=== PATIENT | female | born 2000 | race African-American/Black ===

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

== ENCOUNTER 2022-02-17 11:21 | Emergency (ER) | payer OTHER ==
[2022-02-17] MEDS ORDERED: LORazepam 2 MG/ML VIAL ONE (12:17)
[2022-02-17 12:27] LABS: Absolute Lymphocytes (CBC) 1.2 K/uL (0.7-4.9); Hematocrit 36.4 % (36.0-45.0); Lymphocytes % 38.6 % (15.3-44.8); MPV 8.5 fL (7.6-11.3); RBC Red Blood Cell Count 4.25 M/uL (3.86-4.86)
[2022-02-17 12:48] LABS: BUN Blood Urea Nitrogen 13 mg/dL (7-18); Bicarbonate 28 mmol/L (21-32); Glucose Level 80 mg/dL (74-106); Potassium 3.6 mmol/L (3.5-5.1); Sodium Level 140 mmol/L (136-145)
[2022-02-17 12:53] LABS: Troponin High Sensitivity < 3.0 pg/mL (<58.9)
--- NOTE | 2022-02-17 13:12 | RAD REPORT ---
EXAM DESCRIPTION: Sarah Single View02/17/2022 1:00 pm CLINICAL HISTORY: sob COMPARISON: none FINDINGS: The lungs appear clear of acute infiltrate. The heart is normal size IMPRESSION: No acute abnormalities displayed
--- NOTE | 2022-02-17 14:36 | ER ---
Nurse's Notes [facility] Name: Landy Lagos Age: 21 yrs Sex: Female : 2000 Arrival Date: 02/17/2022 Time: 11:22 Bed 16 Private MD: Johnny Hu W Diagnosis: Palpitations Presentation: 02/17 11:26 Chief complaint: Patient states: was asleep and she woke up an couldn't breathe and iw felt like she couldn't breathe in her sleep and her heart was racing , still feels like she can't catch her breath and feels a little chest pain. Coronavirus screen: At this time, the client does not indicate any symptoms associated with coronavirus-19. Ebola Screen: Patient negative for fever greater than or equal to 101.5 degrees Fahrenheit, and additional compatible Ebola Virus Disease symptoms Patient denies exposure to infectious person. Patient denies travel to an Ebola-affected area in the 21 days before illness onset. No symptoms or risks identified at this time. Initial Sepsis Screen: Does the patient meet any 2 criteria? No. Patient's initial sepsis screen is negative. Does the patient have a suspected source of infection? No. Patient's initial sepsis screen is negative. Risk Assessment: Do you want to hurt yourself or someone else? Patient reports no desire to harm self or others. Onset of symptoms was February 17, 2022. 11:26 Method Of Arrival: Ambulatory iw 11:26 Acuity: GOGO 3 iw Triage Assessment: 14:52 General: Appears in no apparent distress. Respiratory: Onset: The symptoms/episode ww began/occurred this morning, the patient has mild shortness of breath. 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 - Social history:: Smoking status: Patient denies any tobacco usage or history of. Screenin:21 Abuse screen: Denies threats or abuse. Denies injuries from another. Nutritional ww screening: No deficits noted. Tuberculosis screening: No symptoms or risk factors identified. Fall Risk None identified. Assessment: 12:21 General: Appears in no apparent distress. comfortable, Behavior is calm, cooperative. ww Pain: Denies pain. Neuro: Level of Consciousness is awake, alert, obeys commands, Oriented to person, place, time, situation, Moves all extremities. Speech is normal. Cardiovascular: Capillary refill < 3 seconds Patient's skin is warm and dry. Rhythm is regular. Respiratory: Reports shortness of breath while sleeping and having a dream. She states that she felt like she couldn't wake up and when she did she was short of breath and ran to her mom telling her Airway is patent Respiratory effort is even, unlabored, Respiratory pattern is regular, symmetrical, Breath sounds are clear. GI: No signs and/or symptoms were reported involving the gastrointestinal system. Abdomen is non-distended, Abd is soft and non tender. EENT: No signs and/or symptoms were reported regarding the EENT system. Derm: Skin is intact, is healthy with good turgor. Musculoskeletal: No signs and/or symptoms reported regarding the musculoskeletal system. 13:25 Reassessment: Patient appears in no apparent distress at this time. No changes from ww previously documented assessment. Patient and/or family updated on plan of care and expected duration. Pain level reassessed. Patient is alert, oriented x 3, equal unlabored respirations, skin warm/dry/pink. Patient states feeling better. 14:50 Reassessment: Patient appears in no apparent distress at this time. No changes from ww previously documented assessment. Patient and/or family updated on plan of care and expected duration. Pain level reassessed. Patient is alert, oriented x 3, equal unlabored respirations, skin warm/dry/pink. Patient states feeling better. Vital Signs: 11:26 BP 119 / 86; Pulse 96; Resp 16; Temp 98.9; Pulse Ox 99% on R/A; Weight 51.71 kg; Height iw 5 ft. 6 in. (167.64 cm); 12:23 BP 108 / 70; Pulse 101; Resp 18; Pulse Ox 99% on R/A; ww 13:45 BP 102 / 75; Pulse 73; Resp 17; Pulse Ox 100% on R/A; ww 14:51 BP 110 / 74; Pulse 77; Resp 17; Pulse Ox 100% on R/A; ww 11:26 Body Mass Index 18.40 (51.71 kg, 167.64 cm) ED Course: 11:22 Patient arrived in ED. am2 11: Johnny Hu MD is Private Physician. am2 11:28 Triage completed. iw 11:29 Arm band placed on. iw 11:34 Silas Unger PA is PHCP. [facility] 11:34 Percy Elkins MD is Attending Physician. [facility] 11:39 Flor Zayas, RN is Primary Nurse. ww 12:15 Inserted saline lock: 20 gauge in left antecubital area, using aseptic technique. Blood dh4 collected. 12:21 Patient has correct armband on for positive identification. Bed in low position. Call ww light in reach. Side rails up X 1. instructional consultant on. Pulse ox on. NIBP on. 12:38 XRAY Chest (1 view) In Process Unspecified. EDMS 14:52 No provider procedures requiring assistance completed. IV discontinued, bleeding ww controlled, No redness/swelling at site. Pressure dressing applied. Administered Medications: 12:21 Drug: Ativan (LORazepam) 0.5 mg Route: IVP; Site: left antecubital; ww Outcome: 14:35 Discharge ordered by . [facility] 14:52 Discharged to home ambulatory. ww 14:52 Condition: stable 14:52 Discharge instructions given to patient, Instructed on discharge instructions, follow up and referral plans. medication usage, safety practices, Demonstrated understanding of instructions, follow-up care, medications, Prescriptions given X 1. 14:59 Patient left the ED. ww Signatures: Dispatcher [employer] EDDE Silas Unger PA PA jmm Williams, Irene, RN RN Muna Carrillo am2 Markus Cuello dh4 Flor Zayas RN RN ww Corrections: (The following items were deleted from the chart) 11:28 PMHx: blood transfusion; [facility]
--- NOTE | 2022-02-17 14:36 | EDPHYS ---
Physician Documentation [facility] Name: Landy Lagos Age: 21 yrs Sex: Female : 2000 Arrival Date: 02/17/2022 Time: 11:22 Bed 16 Private MD: Jhonny Hu W ED Physician Percy Elkins HPI: 02/17 11:50 This 21 yrs old Black Female presents to ER via Ambulatory with complaints of Breathing jmm Difficulty, fast heart beat. 11:50 The patient has shortness of breath at rest. Onset: The symptoms/episode began/occurred jmm acutely, today. Duration: The symptoms are continuous, but are steadily getting better. The patient's shortness of breath is aggravated by nothing, is alleviated by nothing. Is an 20-year-old female with history of stomach ulcers who presents emerged part with complaints of palpitations which awoke her from sleep earlier today. Patient states she has had shortness of breath since. Patient states she does feel anxious does have a history of anxiety as well. Denies cough or congestion, denies fever.. 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 - Social history:: Smoking status: Patient denies any tobacco usage or history of. ROS: 11:50 Constitutional: Negative for fever, chills, and weight loss. jmm 11:50 Cardiovascular: Positive for palpitations. 11:50 Respiratory: Positive for shortness of breath. 11:50 All other systems are negative. Exam: 11:50 Constitutional: This is a well developed, well nourished patient who is awake, alert, jmm and in no acute distress. Head/Face: atraumatic. Eyes: EOMI, no conjunctival erythema appreciated ENT: Moist Mucus Membranes Neck: Trachea midline, Supple Chest/axilla: Normal chest wall appearance and motion. 11:50 Respiratory: Normal respirations, no respiratory distress appreciated Abdomen/GI: Non distended, soft Back: Normal ROM Skin: General appearance color normal MS/ Extremity: Moves all extremities, no obvious deformities appreciated, no edema noted to the lower extremities Neuro: Awake and alert Psych: Behavior is normal, Mood is normal, Patient is cooperative and pleasant 11:50 Cardiovascular: Rate: normal, Rhythm: regular. Vital Signs: 11:26 BP 119 / 86; Pulse 96; Resp 16; Temp 98.9; Pulse Ox 99% on R/A; Weight 51.71 kg; Height iw 5 ft. 6 in. (167.64 cm); 12:23 BP 108 / 70; Pulse 101; Resp 18; Pulse Ox 99% on R/A; ww 13:45 BP 102 / 75; Pulse 73; Resp 17; Pulse Ox 100% on R/A; ww 14:51 BP 110 / 74; Pulse 77; Resp 17; Pulse Ox 100% on R/A; ww 11:26 Body Mass Index 18.40 (51.71 kg, 167.64 cm) iw MDM: 11:50 Patient medically screened. magda 14:35 Data reviewed: vital signs, nurses notes. Counseling: I had a detailed discussion with magda the patient and/or guardian regarding: the historical points, exam findings, and any diagnostic results supporting the discharge/admit diagnosis, lab results, the need for outpatient follow up, to return to the emergency department if symptoms worsen or persist or if there are any questions or concerns that arise at home. 14:35 ED course: Patient states feeling much better. Patient advised follow-up PCP and jmm otherwise given strict return precautions. Patient understood and agrees plan of care.. 02/17 11:51 Order name: Basic Metabolic Panel; Complete Time: 13:13 [facility] 02/17 11:51 Order name: CBC with Diff; Complete Time: 12:31 [facility] 02/17 11:51 Order name: D-Dimer; Complete Time: 13:53 [facility] 02/17 11:51 Order name: Troponin HS; Complete Time: 13:13 [facility] 02/17 11:51 Order name: XRAY Chest (1 view); Complete Time: 13:13 [facility] 02/17 11:51 Order name: EKG; Complete Time: 11:52 [facility] 02/17 11:51 Order name: Cardiac monitoring; Complete Time: 12:10 [facility] 02/17 11:51 Order name: EKG - Nurse/Tech; Complete Time: 12:20 [facility] 02/17 11:51 Order name: IV Saline Lock; Complete Time: 12:20 [facility] 02/17 11:51 Order name: Labs collected and sent; Complete Time: 12:21 [facility] 02/17 11:51 Order name: O2 Per Protocol; Complete Time: 12:10 [facility] 02/17 11:51 Order name: O2 Sat Monitoring; Complete Time: 12:10 [facility] Administered Medications: 12:21 Drug: Ativan (LORazepam) 0.5 mg Route: IVP; Site: left antecubital; ww Disposition Summary: 02/17/22 14:35 Discharge Ordered Location: Home jm Condition: Stable jmm Diagnosis - Palpitations jmm Followup: jmm - With: Private Physician - When: 2 - 3 days - Reason: Recheck today's complaints, Continuance of care, Re-evaluation by your physician Discharge Instructions: - Discharge Summary Sheet jmm - Palpitations jmm - Managing Anxiety, Adult jm Forms: - Medication Reconciliation Form [facility] - Thank You Letter [facility] - Antibiotic Education [facility] - Prescription Opioid Use [facility] - Work release form Prescriptions: - Hydroxyzine HCl 25 mg Oral Tablet - take 1 tablet by ORAL route every 6 hours As needed; 30 tablet; Refills: 0, jm Product Selection Permitted Addendum: 02/18/2022 15:37 Co-signature as Attending Physician, Percy Elkins MD I agree with the assessment and k dr plan of care. Signatures: Dispatcher [employer] Percy Iqbal MD MD [facility] Silas Unger PA PA [facility] Andie Garland RN RN iw Wood, Whitney, RN RN ww Corrections: (The following items were deleted from the chart) 02/17 11:28 PMHx: blood transfusion; alex johnson
[2022-02-17 15:43] VITALS: TEMP 98.9
[2022-02-17 15:46] VITALS: O2SAT 100
[2022-02-17 15:47] VITALS: BP 110/74
--- NOTE | 2022-02-17 17:31 | EKG ---
Test Date: 2022-02-17 Test Time: 12:15:53 Ice Cream Vendor: SHEREE MEASUREMENT RESULTS: Intervals: Rate: 79 VT: 134 QRSD: 66 QT: 364 QTc: 417 [place]: P: 50 VT: 134 QRS: 51 T: 42 INTERPRETIVE STATEMENTS: Normal sinus rhythm Normal ECG Compared to ECG 03/25/2017 22:54:43 No significant changes Electronically Signed On 02-17-22 17:30:58 CDT by Darron Carrizales
== END 2022-02-17 14:59 | disposition home or self-care (01) ==
LOC: ER 11:21
DX: R00.2 Palpitations (principal); R06.02 Shortness of breath
CPT/HCPCS: 36415; 71045; 80048; 84484; 85025; 85379; 93005; 96374; 99284

== ENCOUNTER 2022-03-20 10:45 | Emergency (ER) | payer OTHER ==
--- NOTE | 2022-03-20 11:09 | EDPHYS ---
Physician Documentation [facility] Name: Landy Lagos Age: 21 yrs Sex: Female : 2000 Arrival Date: 03/20/2022 Time: 10:48 Bed DIS4 Private MD: ED Physician Alejandro Groves HPI: 03/20 11:48 This 21 yrs old Black Female presents to ER via Ambulatory with complaints of Cough, ms3 Congestion. 11:48 The patient or guardian reports cough, Nasal congestion, sore throat. Onset: The ms3 symptoms/episode began/occurred 4 day(s) ago. Severity of symptoms: At their worst the symptoms were moderate, in the emergency department the symptoms are unchanged. Modifying factors: The symptoms are alleviated by nothing, the symptoms are aggravated by nothing. Associated signs and symptoms: The patient has no apparent associated signs or symptoms. Historical: - Allergies: 11:08 No Known Allergies; iw - Home Meds: 11:08 None [Active]; iw - PMHx: 11:08 Ulcers; iw - PSHx: 11:08 "surgery at 3 yo for bleeding in abd"; iw ROS: 11:48 Constitutional: Negative for fever, and chills. ms3 11:48 Cardiovascular: Negative for chest pain, and palpitations. Respiratory: Negative for shortness of breath, cough, wheezing, and pleuritic chest pain, Abdomen/GI: Negative for abdominal pain, nausea, vomiting, diarrhea, and constipation, Skin: Negative for injury, rash, and discoloration. 11:48 ENT: Positive for sinus congestion, sore throat. 11:48 All other systems are negative. Exam: 11:48 Constitutional: This is a well developed, well nourished patient who is awake, alert, ms3 and in no acute distress. Head/Face: Normocephalic, atraumatic. ENT: Nares patent. No nasal discharge, no septal abnormalities noted. Tympanic membranes are normal and external auditory canals are clear. Oropharynx with no redness, swelling, or masses, exudates, or evidence of obstruction, uvula midline. Mucous membranes moist. Neck: Trachea midline, no cervical lymphadenopathy. Supple, full range of motion without nuchal rigidity, or vertebral point tenderness. No Meningismus. Chest/axilla: Normal chest wall appearance and motion. Nontender with no deformity. Cardiovascular: Regular rate and rhythm with a normal S1 and S2. No gallops, murmurs, or rubs. Normal PMI, no JVD. No pulse deficits. Respiratory: Lungs have equal breath sounds bilaterally, clear to auscultation and percussion. No rales, rhonchi or wheezes noted. No increased work of breathing, no retractions or nasal flaring. Abdomen/GI: Soft, non-tender, with normal bowel sounds. No distension or tympany. No guarding or rebound. No evidence of tenderness throughout. Skin: Warm, dry with normal turgor. Normal color with no rashes, no lesions, and no evidence of cellulitis. Vital Signs: 11:07 BP 104 / 64; Pulse 88; Resp 16; Temp 96.9; Pulse Ox 99% on R/A; iw MDM: 11:08 Patient medically screened. ms3 11:48 Differential Diagnosis: Upper Respiratory Infection Allergic Rhinitis Viral Syndrome. ms3 Data reviewed: vital signs, nurses notes. Counseling: I had a detailed discussion with the patient and/or guardian regarding: the historical points, exam findings, and any diagnostic results supporting the discharge/admit diagnosis, the need for outpatient follow up, to return to the emergency department if symptoms worsen or persist or if there are any questions or concerns that arise at home. ED course: Discussed physical exam findings with patient. Patient to follow-up with primary care physician in 2 to 3 days. Patient understands and agrees with plan. All questions were answered. Return precautions discussed include worsening symptoms, or any other concerns.. Administered Medications: No medications were administered Disposition Summary: 03/20/22 11:08 Discharge Ordered Location: Home ms3 Condition: Stable ms3 Diagnosis - Allergic rhinitis, unspecified ms3 Followup: ms3 - With: Dale Cleary MD - When: 2 - 3 days - Reason: Recheck today's complaints Discharge Instructions: - Discharge Summary Sheet cp - Allergies, Adult ms3 Forms: - Medication Reconciliation Form ms3 - Thank You Letter ms3 - Antibiotic Education ms3 - Prescription Opioid Use ms3 Prescriptions: - Flonase Allergy Relief 50 mcg/actuation Nasal spray,suspension - spray 2 spray by INTRANASAL route once daily as needed; 1 spray; Refills: 0, cp Product Selection Permitted - Claritin 10 mg Oral Tablet - take 1 tablet by ORAL route once daily As needed; 30 tablet; Refills: 0, ms3 Product Selection Permitted Signatures: Andie Garland RN RN iw Alejandro Groves DO DO ms3
--- NOTE | 2022-03-20 11:09 | ER ---
Nurse's Notes [facility] Name: Landy Lagos Age: 21 yrs Sex: Female : 2000 Arrival Date: 03/20/2022 Time: 10:48 Bed DIS4 Private MD: Diagnosis: Allergic rhinitis, unspecified Presentation: 03/20 11:07 Chief complaint: Patient states: cough, nasal congestion, sore throat. Coronavirus iw screen: At this time, the client does not indicate any symptoms associated with coronavirus-19. Ebola Screen: Patient negative for fever greater than or equal to 101.5 degrees Fahrenheit, and additional compatible Ebola Virus Disease symptoms Patient denies exposure to infectious person. Patient denies travel to an Ebola-affected area in the 21 days before illness onset. No symptoms or risks identified at this time. Initial Sepsis Screen: Does the patient meet any 2 criteria? No. Patient's initial sepsis screen is negative. Does the patient have a suspected source of infection? No. Patient's initial sepsis screen is negative. Risk Assessment: Do you want to hurt yourself or someone else? Patient reports no desire to harm self or others. Onset of symptoms was March 20, 2022. 11:07 Method Of Arrival: Ambulatory iw 11:07 Acuity: GOGO 4 iw Historical: - Allergies: 11:08 No Known Allergies; iw - Home Meds: 11:08 None [Active]; iw - PMHx: 11:08 Ulcers; iw - PSHx: 11:08 "surgery at 3 yo for bleeding in abd"; iw Vital Signs: 11:07 BP 104 / 64; Pulse 88; Resp 16; Temp 96.9; Pulse Ox 99% on R/A; iw ED Course: 10:48 Patient arrived in ED. as 10:50 Alejandro Groves DO is Attending Physician. ms3 11:07 Andie Garland RN is Primary Nurse. iw 11:08 Triage completed. iw 11:08 Dale Cleary MD is Referral Physician. ms3 11:08 Arm band placed on. iw Administered Medications: No medications were administered Outcome: 11:08 Discharge ordered by MD. ms3 11:17 Patient left the ED. iw Signatures: Elsy Krishna as Andie Garland, RN RN iw Groves, Alejandro, DO DO ms3
[2022-03-20 11:37] VITALS: BP 104/64; TEMP 96.9; O2SAT 99
== END 2022-03-20 11:17 | disposition home or self-care (01) ==
LOC: ER 10:45
DX: J30.9 Allergic rhinitis, unspecified (principal); R05.9 Cough, unspecified; R07.0 Pain in throat
CPT/HCPCS: 99281